=== PATIENT | female | born 1985 | race Caucasian/White ===

== ENCOUNTER → 2024-07-25 | Outpatient (CLI) | payer OTHER ==
[~2024-07-25] MED LIST: CLARITIN10 MG PO; MACROBID100 M1 PO; TRAMADOL HCL50 MG PO; ZITHROMAX Z PA250 MG PO
== END | disposition home or self-care (01) ==
LOC: US 13:00
PROVIDERS: ATTEND Nurse Practitioner Women's Health
DX: N92.0 Excessive and frequent menstruation with regular cycle (principal); N94.10 Unspecified dyspareunia; R10.32 Left lower quadrant pain